=== PATIENT | male | born 2005 | race Two or more races ===

== ENCOUNTER 2025-01-17 16:05 | Emergency (ER) | payer SELFPAY ==
[~2025-01-17] VITALS: Ht 182.9 cm; Wt 74.0 kg
[2025-01-17] MEDS: ACETAMINOPHEN 325 MG TAB PO ONE ×2 (16:20→16:27)
[2025-01-17] MEDS: ONDANSETRON ODT 4 MG TAB PO ONE (16:30)
--- NOTE | 2025-01-17 17:01 | DVH ---
CHEST RADIOGRAPH Indication: Cough Technique: Single frontal view of the chest was obtained Comparison: None FINDINGS: Lines and Tubes: None Lungs: Right middle lobe airspace disease and atelectasis. medial segment. Pleura: No effusion. No pneumothorax. Cardiomediastinal contours: Unremarkable Bones: No acute osseous abnormality. IMPRESSION: 1. Right middle lobe airspace disease and atelectasis.
[2025-01-17 17:18] LABS: Urine Protein, UAD 2+ (Negative)
[2025-01-17 17:29] LABS: COVID19 ANTIGEN SOFIA FIA NEGATIVE (NEGATIVE)
[2025-01-17 17:36] LABS: Hematocrit 44.6 % (41.0-53.0); Hemoglobin 15.8 g/dL (13.5-17.5); Mean Corpuscular Hemoglobin 29.2 pg (28.0-32.0); Mean Corpuscular Volume 82.5 fL (80.0-100.0); Nucleated Red Blood Cells % 0.1 %
[2025-01-17 17:42] LABS: Anion Gap 13 (5-15); Carbon Dioxide 23 mmol/L (20-31)
[2025-01-17 17:43] LABS: Calcium 9.3 mg/dL (8.7-10.4)
[2025-01-17 17:44] LABS: Chloride 94 mmol/L (98-107); Potassium 3.5 mmol/L (3.5-5.1); Sodium 130 mmol/L (136-145)
[2025-01-17 17:47] LABS: Glucose 103 mg/dL (74-106)
[2025-01-17 17:48] LABS: BUN/Creatinine Ratio 7.3 (10.0-20.0); Blood Urea Nitrogen 8 mg/dL (9-23); Lipase 36 U/L (12-53)
[2025-01-17 18:14] VITALS: BP 132/79
[2025-01-17] MEDS: SODIUM CHLORIDE 0.9% 1,000 ML IV ONE (18:34)
[2025-01-17 18:46] VITALS: PULSE 95; RESP 18; O2SAT 96
[2025-01-17 18:54] VITALS: TEMP 99.5
[2025-01-17] MEDS: IBUPROFEN 800 MG TAB PO ONE (18:54)
--- NOTE | 2025-01-17 18:56 | ED.PDOC ---
History of Present Illness HPI Comments 19 y/o M presents with c/c of flu-like symptoms. Patient endorses on having generalized bodyaches, intermittent nausea, and a fever of 103.9F at home, earlier, today. No reported pertinent history. Denies chest pain, shortness of breath, or further associated symptoms. Patient denies any recent travel or new food sources. Patient looked moderately toxic at time of evaluation. Chief Complaint: Flu like Time Seen by MD: 16:15 Reviewed Notes: Nurses Notes, Medications, Allergies Allergies: Coded Allergies: No Known Drug Allergy (Verified Allergy, Unknown, 01/17/25) Information Source: Patient Mode of Arrival: Ambulatory Severity: Moderate Timing: Hours Duration: Since onset Prehospital treatment: None Past Medical History PAST MEDICAL HISTORY: Denies Surgical History: Denies all surgeries Family History Family History: Unknown Social History Smoker: Non-Smoker Alcohol: Denies ETOH Use Drugs: Denies Drug Use Lives In: Home Constitutional: reports: fatigue, fever, weakness; denies: chills, diaphoresis, malaise, sweats, others EENTM: denies: blurred vision, double vision, ear bleeding, ear discharge, ear drainage, ear pain, ear ringing, eye pain, eye redness, hearing loss, mouth pain, mouth swelling, nasal discharge, nose bleeding, nose congestion, nose pain, photophobia, tearing, throat pain, throat swelling, voice changes, others Respiratory: reports: cough; denies: hemoptysis, orthopnea, SOB at rest, shortness of breath, SOB with excertion, stridor, wheezing, others Cardiovascular: reports: chest pain (Pleuritic); denies: dizzy spells, diaphoresis, Dyspnea on exertion, edema, irregular heart beat, left arm pain, lightheadedness, palpitations, PND, syncope, others Gastrointestinal: denies: abdomen distended, abdominal pain, blood streaked bowels, constipated, diarrhea, dysphagia, difficulty swallowing, hematemesis, melena, nausea, poor appetite, poor fluid intake, rectal bleeding, rectal pain, vomiting, others Genitourinary: denies: burning, dysuria, flank pain, frequency, hematuria, incontinence, penile discharge, penile sore, pain, testicle pain, testicle swelling, urgency, others Neurological: denies: dizziness, fainting, headache, left sided numbness, left sided weakness, numbness, paresthesia, pre-existing deficit, right sided numbness, right sided weakness, seizure, speech problems, tingling, tremors, weakness, others Musculoskeletal: denies: back pain, gout, joint pain, joint swelling, muscle pain, muscle stiffness, neck pain, others Integumetry: denies: bruises, change in color, change in hair/nails, dryness, laceration, lesions, lumps, rash, wounds, others Allergic/Immunocompromised: denies: Difficulty Healing, Frequent Infections, Hives, Itching, others Hematologic/Lymphatic: denies: anemia, blood clots, easy bleeding, easy bruising, swollen glands, others Endocrine: denies: excessive hunger, excessive sweating, excessive thirst, excessive urination, flushing, intolerance to cold, intolerance to heat, unexplained weight gain, unexplained weight loss, others Psychiatric: denies: anxiety, bipolar disorder, depression, hopeless, panic disorder, schizophrenia, sleepless, suicidal, others All Other Systems: Reviewed and Negative (Comprehensive review of systems are negative unless stated in HPI) Physical Exam General Appearance: Moderate Distress (Patient looks moderately toxic at time of evaluation.), Normal HEENT: Normal ENT Inspection, Pharynx Normal, TMs Normal Neck: Full Range of Motion, Non-Tender, Normal, Normal Inspection Respiratory: Chest Non-Tender, Lungs Clear, No Accessory Muscle Use, No Respiratory Distress, Normal Breath Sounds Cardiovascular: No Edema, No JVD, No Murmur, No Gallop, Normal Peripheral Pulses, Regular Rate/Rhythm Breast Exam: Deferred Gastrointestinal: No Organomegaly, Non Tender, No Pulsatile Mass, Normal Bowel Sounds, Soft Genitalia: Deferred Pelvic: Deferred Rectal: Deferred Extremities: No calf tenderness, Normal inspection Neurologic: Alert Cerebellar Function: NOT DONE Reflexes: NOT DONE Skin: Pallor Lymphatic: No Adenopathy Was a procedure done? Was a procedure done?: No Differential Dx Considerations may include: URI, PNA, viral syndrome, COVID-19, influenza, among others X-Ray, Labs, Meds, VS Vital Signs Date Time Temp Pulse Resp B/P (MAP) Pulse Ox O2 Delivery O2 Flow Rate FiO2 01/17/25 18:54 99.5 01/17/25 18:46 95 18 96 Room Air 01/17/25 18:14 99.5 95 18 132/79 (96) 96 99.5 01/17/25 17:07 103.2 01/17/25 17:07 103.2 01/17/25 17:04 103.2 103.2 01/17/25 16:27 103.9 01/17/25 16:20 103.9 01/17/25 16:07 103.9 130 18 101/54 96 103.9 Lab Test 01/17/25 17:20 01/17/25 16:34 01/17/25 16:32 Range/Units White Blood Count 6.4 4.4-10.8 10^3/uL Red Blood Count 5.40 4.5-5.90 10^6/uL Hemoglobin 15.8 13.5-17.5 g/dL Hematocrit 44.6 41.0-53.0 % Mean Corpuscular Volume 82.5 80.0-100.0 fL Mean Corpuscular Hemoglobin 29.2 28.0-32.0 pg Mean Corpuscular Hemoglobin Concent 35.4 32.0-36.0 g/dL Red Cell Distribution Width 14.1 11.8-14.3 % Platelet Count 189 140-450 10^3/uL Mean Platelet Volume 7.6 6.9-10.8 fL Neutrophils (%) (Auto) 74.5 37.0-80.0 % Lymphocytes (%) (Auto) 12.6 10.0-50.0 % Monocytes (%) (Auto) 12.7 H 0.0-12.0 % Eosinophils (%) (Auto) 0.0 0.0-7.0 % Basophils (%) (Auto) 0.2 0.0-2.0 % Neutrophils # (Auto) 4.8 1.6-8.6 10 ^3/uL Lymphocytes # (Auto) 0.8 0.4-5.4 10 ^3/uL Monocytes # (Auto) 0.8 0-1.3 10 ^3/uL Eosinophils # (Auto) 0 0-0.8 10 ^3/uL Basophils # (Auto) 0 0-0.2 10 ^3/uL Nucleated Red Blood Cells 0.1 % Sodium Level 130 L 136-145 mmol/L Potassium Level 3.5 3.5-5.1 mmol/L Chloride Level 94 L 98-107 mmol/L Carbon Dioxide Level 23 20-31 mmol/L Anion Gap 13 5-15 Blood Urea Nitrogen 8 L 9-23 mg/dL Creatinine 1.09 0.700-1.30 mg/dL Glomerular Filtration Rate Calc 99 >90 mL/min BUN/Creatinine Ratio 7.3 L 10.0-20.0 Serum Glucose 103 74-106 mg/dL Lactic Acid Level 1.0 0.4-2.0 mmol/L Calcium Level 9.3 8.7-10.4 mg/dL Lipase 36 12-53 U/L Urine Color Yellow Yellow Urine Clarity Clear Clear Urine pH 6.5 5.0-9.0 Urine Specific Vincent 1.027 1.001-1.035 Urine Protein 2+ H Negative Urine Ketones 4+ H Negative Urine Blood 2+ H Negative /uL Urine Nitrite Negative Negative Urine Bilirubin Negative Negative Urine Urobilinogen 2 H Negative mg/dL Urine Leukocyte Esterase Negative Negative /uL Urine RBC 11 0 - 3 /hpf Urine Microscopic WBC 4 H 0-3 /HPF Urine Squamous Epithelial Cells None seen <5 /hpf Urine Bacteria Few H None Seen /hpf Urine Glucose Normal Normal mg/dL Influenza Type A Antigen Negative Negative Influenza Type B Antigen Negative Negative SARS-CoV-2 Antigen (Rapid) Negative NEGATIVE Current Medications Medications (Trade) Dose Ordered Sig/Bernard Route Start Time Stop Time Status Last Admin Acetaminophen (Tylenol Tablet) 650 mg ONCE ONCE PO 01/17/25 16:15 01/17/25 16:16 DC 01/17/25 16:20 Acetaminophen (Tylenol Tablet) 325 mg ONCE ONCE PO 01/17/25 16:30 01/17/25 16:31 DC 01/17/25 16:27 Ondansetron HCl (Zofran Po) 4 mg ONCE ONCE PO 01/17/25 16:30 01/17/25 16:31 DC 01/17/25 16:30 Ibuprofen (Motrin Tablet) 800 mg ONCE ONCE PO 01/17/25 17:15 01/17/25 17:16 DC 01/17/25 18:54 Sodium Chloride 1,000 ml @ 1,000 mls/hr Q1H ONCE IV 01/17/25 17:15 01/17/25 18:14 DC 01/17/25 18:[address] [address] Ph: [phone] DIAGNOSTIC IMAGING Diagnostic Imaging Report : [id number] Signed PATIENT: JUANIS RUIZ ACCT: [id number] UNIT: [id number] : 2005 LOC: ER ROOM / BED: / AGE / SEX: 19 / M ADM STATUS: REG ER SERVICE 24 ORDERING PHYSICIAN: JENSEN BANEGAS PAC PROCEDURE(s): CXRP - CHEST PORTABLE REASON: Cough ORDER NUMBER(s): [id number], ACCESSION NUMBER(s): [id number] CHEST RADIOGRAPH Indication: Cough Technique: Single frontal view of the chest was obtained Comparison: None FINDINGS: Lines and Tubes: None Lungs: Right middle lobe airspace disease and atelectasis. medial segment. Pleura: No effusion. No pneumothorax. Cardiomediastinal contours: Unremarkable Bones: No acute osseous abnormality. IMPRESSION: 1. Right middle lobe airspace disease and atelectasis. ATED BY: JAYCE HUNTER Jr., DO DICTATED DATE/TIME: 01/17/251658 SIGNED BY: JAYCE HUNTER Jr., SIGNED DATE/TIME: 01/17/251658 CC: X-Ray, Labs, Meds, VS Comment All studies performed the ED were evaluated by me personally. Serum studies were unremarkable for any systemic concerns and swabs were unremarkable for any COVID or influenza. Chest x-ray showed some consolidation indicative of a probable pneumonia. Patient will be given antibiotics prior to discharge and has been advised to utilize antibiotics as directed until completion. Additional medication as needed. Patient should maintain good hydration with a electrolyte based component such as Pedialyte. Time of 1ST Reevaluation: 19:13 Reevaluation 1ST: Improved Consultation: PCP Patient Education/Counseling: Treatment, Need For Follow Up Family Education/Counseling: Diagnosis, Treatment, No Family Present SEPSIS Sepsis Screen Date sepsis recognized/suspect: Jan 17, 2025 Time Sepsis recognized/suspect: 1609 Recent Procedure: No On Antibiotic Therapy: No Respiratory Rate >20: No Heart Rate >90: No Temp<36 C (96.8 F) or >38.3 C: No SBP <90 or MAP <65 mmHG: No New Acute Mental Status Change: No Is the patient on CPAP, BIPAP,: No Physician Orders Chest Portable (01/17/25 16:25) Heplock Iv (01/17/25 ) Azithromycin Tablet (Zithromax Tablet) (01/17/25 19:15) Doxycycline Tablet (Vibramycin Tablet) (01/17/25 19:15) Vital Signs Date Time Temp Pulse Resp B/P (MAP) Pulse Ox O2 Delivery O2 Flow Rate FiO2 01/17/25 18:54 99.5 01/17/25 18:46 95 18 96 Room Air 01/17/25 18:14 99.5 95 18 132/79 (96) 96 99.5 01/17/25 17:07 103.2 01/17/25 17:07 103.2 01/17/25 17:04 103.2 103.2 01/17/25 16:27 103.9 01/17/25 16:20 103.9 01/17/25 16:07 103.9 130 18 101/54 96 103.9 Laboratory Tests Test 01/17/25 17:20 Lactic Acid Level 1.0 mmol/L (0.4-2.0) White Blood Count 6.4 10^3/uL (4.4-10.8) Medications Medications Dose Ordered Sig/Bernard Route Start Time Stop Time Status Last Admin Dose Admin Acetaminophen 325 mg ONCE ONCE PO 01/17/25 16:30 01/17/25 16:31 DC 01/17/25 16:27 Acetaminophen 650 mg ONCE ONCE PO 01/17/25 16:15 01/17/25 16:16 DC 01/17/25 16:20 Ibuprofen 800 mg ONCE ONCE PO 01/17/25 17:15 01/17/25 17:16 DC 01/17/25 18:54 Ondansetron HCl 4 mg ONCE ONCE PO 01/17/25 16:30 01/17/25 16:31 DC 01/17/25 16:30 Sodium Chloride 1,000 ml @ 1,000 mls/hr Q1H ONCE IV 01/17/25 17:15 01/17/25 18:14 DC 01/17/25 18:34 Departure 1 Departure Time of Disposition: 19:13 Impression: Primary Impression: Pneumonia Disposition: 01 HOME / SELF CARE / HOMELESS Condition: Stable Additional Instructions: Advised patient utilize antibiotics as directed until completion. Patient should utilize additional medication as needed. Good hydration and healthy n utrition throughout. Patient should utilize hydration that has a electrolyte components such as Pedialyte. e-Prescriptions Ibuprofen Micronized (Ibuprofen) 800 Mg Tab 800 MG PO Q8HP PRN, #20 TAB Prov: JENSEN BANEGAS 01/17/25 Acetaminophen (Acetaminophen) 500 Mg Tab 500 MG PO Q4HP PRN, #30 TAB Prov: JENSEN BANEGAS 01/17/25 Ondansetron Odt 4MG Tab (ZOFRAN PO) 4 Mg Tb 4 MG PO Q6HP PRN, #20 TAB ODT TAB-DISSOLVE IN MOUTH, THEN SWALLOW Prov: JENSEN BANEGAS 01/17/25 Doxycycline Monohydrate (Doxycycline Monohydrate) 100 Mg Cap 1 CAP PO BID for 7 Days, #14 CAP Prov: JENSEN BANEGAS 01/17/25 Azithromycin (Azithromycin) 500 Mg Tab 1 TAB PO DAILY for 4 Days, #4 TAB First dose to be taken on 01/18/2025 Prov: JENSEN BANEGAS 01/17/25 Discharged With: Self, Friend Critical Care Note Critical Care Time?: No Stability Stability form required: No Heart Score Heart Score: Heart Score Response (Comments) Value History N/A 0 EKG N/A 0 Age N/A 0 Risk Factors N/A 0 Troponin N/A 0 Total 0 I personally scribed for JENSEN BANEGAS PAC ([email or web address]) on 01/17/25 at 18:56. Electronically submitted by Sihvam Tony ([email or web address]). JENSEN BANEGAS PAC Jan 17, 2025 18:56
[2025-01-17] MEDS ORDERED: IBUP-1455 PO (19:16)
[2025-01-17] MEDS ORDERED: DOXY1CAP57 PO (19:16)
[2025-01-17] MEDS ORDERED: ZOFR4T PO (19:16)
[2025-01-17] MEDS ORDERED: ACET500T58 PO (19:16)
[2025-01-17] MEDS ORDERED: AZIT500T66 PO (19:16)
[2025-01-17] MEDS: AZITHROMYCIN 250 MG TAB PO ONE (19:24)
[2025-01-17] MEDS: DOXYCYCLINE 100 MG TAB/CAP PO ONE (19:24)
== END 2025-01-17 19:26 | disposition home or self-care (01) ==
LOC: ER 16:05
DX: J18.9 Pneumonia, unspecified organism (principal); Z20.822 Contact with and (suspected) exposure to COVID-19
CPT/HCPCS: 36415; 71045; 80048; 81001; 83605; 83690; 85025; 87426; 87804; 96360; 99284; J7030; Q0162